=== PATIENT | female | born 1940 | race Caucasian/White ===

== ENCOUNTER 2016-10-03 13:23 | Emergency (ER) | payer OTHER ==
[~2016-10-03] VITALS: Ht 165.1 cm; Wt 81.6 kg
[2016-10-03 13:32] VITALS: BP 150/83
[2016-10-03] MEDS ORDERED: cefTRIAXone SOD 1,000 MG VL IM ONE (14:45)
== END 2016-10-03 15:22 | disposition home or self-care (01) ==
LOC: ER 13:23
DX: K04.7 Periapical abscess without sinus (principal); Z88.6 Allergy status to analgesic agent; Z88.8 Allergy status to other drugs, medicaments and biological substances
CPT/HCPCS: 96372; 99283; J0696